=== PATIENT | male | born 1930 | race Caucasian/White ===

== ENCOUNTER → 2016-05-20 | Outpatient (CLI) | payer OTHER | LOC: FIMAGING 10:19 | PROVIDERS: ATTEND Internal Medicine Cardiovascular Disease | DX: I48.91 Unspecified atrial fibrillation (principal); J44.9 Chronic obstructive pulmonary disease, unspecified; J98.11 Atelectasis; T82.120A Displacement of cardiac electrode, initial encounter ==

== ENCOUNTER 2016-07-22 10:20 | Emergency (ER) | payer OTHER ==
--- NOTE | 2016-07-22 10:58 | EDPHY ---
H & P Stated Complaint: copd exacerbation 2 rounds zmax. travel to [facility] [place] Time Seen by Provider: 07/22/16 10:39 HPI/ROS: Chief Complaint: Shortness of breath, cough HPI: 86-year-old male with a history of COPD presenting with 7 days of nonproductive cough and shortness of breath. Patient travel to [facility] and return to [place] a days ago. The following day he started having worsening symptoms consistent with COPD exacerbation. He states that he was traveling with people who were having upper respiratory type symptoms. He did have 2 courses of azithromycin and a prednisone taper which she took but has not had significant improvement. He called his top installer this morning was suggested to come here for chest x-ray and further evaluation. Patient states the cough is dry nonproductive. No subjective fevers or chills. No nausea or vomiting. No chest pain. Does have some shortness of breath associated with his coughing. ROS: 10 point Review of Systems is negative except as noted in the HPI. PMH: COPD Social History: No smoking, no alcohol, no recreational drug use Family History: non-contributory Physical Exam: Gen: Awake, Alert, No Distress HEENT: Nose: no rhinorrhea Eyes: PERRLA, EOMI Mouth: Moist mucosa Neck: Supple, no JVD Chest: nontender, diffuse expiratory wheezing with no focal rales or rhonchi. Heart: S1, S2 normal, no murmur Abd: Soft, non-tender, no guarding Back: no CVA tenderness, no midline tenderness Ext: no edema, non-tender Skin: no rash Neuro: CN II-XII intact, Sensation grossly intact, Strength 5/5 in bilateral upper and lower extremities - Medical/Surgical History Other PMH: COPD. abd chest surg r/t trauma. pacer afib Constitutional: Initial Vital Signs Temperature (C) 36.4 C 07/22/16 10:37 Heart Rate 78 07/22/16 10:37 Respiratory Rate 20 07/22/16 10:37 Blood Pressure 118/71 07/22/16 10:37 O2 Sat (%) 96 07/22/16 10:37 O2 Delivery Mode Room Air Allergies/Adverse Reactions: No Known Allergies Allergy (Unverified 07/22/16 10:42) Home Medications: Medication Instructions Recorded Coreg 07/22/16 Doxycycline Hyclate 100 mg PO BID #20 tablet 07/22/16 Lasix 07/22/16 MONOPRIL 07/22/16 Pradaxa 07/22/16 Spiriva Inhaler (RX) 07/22/16 Zocor 07/22/16 predniSONE 60 mg PO DAILY #9 tab 07/22/16 Medical Decision Making - Diagnostics Imaging Results: Unchanged from prior. No large focal infiltrate per my interpretation. Imaging: I viewed and interpreted images myself ED Course/Re-evaluation: 86-year-old male with a COPD exacerbation. He is not febrile. He is not hypoxic on room air. Vital signs are normal. His diffuse expiratory wheezing and but no focal crackles on examination. Will obtain chest x-ray given DuoNeb and reassess. Patient does not have a large infiltrate on his chest x-ray is largely unchanged from prior. However given his COPD and his lack of improvement will start him on doxycycline. Will continue with steroids 60 mg of prednisone daily for the next 3 days. He should follow up with his top installer on Monday , or return emergency depart for any concerns. Patient is not hypoxemic. He is not tachypneic. Vital signs are otherwise normal. He is afebrile. I think he is appropriate to go home at this time and is asking to do so. - Data Points Medications Given: Discontinued Medications Albuterol/Ipratropium (Duoneb) 3 ml IH EDNOW ONE Stop: 07/22/16 11:19 Last Admin: 07/22/16 11:23 Dose: 3 ml Departure - Departure Disposition: Home, Routine, Self-Care Clinical Impression: Chronic obstructive pulmonary disease with acute exacerbation Condition: Good Instructions: COPD (Chronic Obstructive Pulmonary Disease) (ED) Additional Instructions: Return to the emergency department for increasing shortness of breath, cough, fevers, chills, wheezing, or any other concerns. Take her full course of both antibiotics and prednisone. Follow up with primary care physician or top installer on Monday. Referrals: Aidan Siddiqui MD [Primary Care Provider] - As per Instructions Prescriptions: Doxycycline Hyclate 100 mg PO BID #20 tablet predniSONE 60 mg PO DAILY #9 tab
[2016-07-22] MEDS ORDERED: IPRATROPIUM/ALBUTEROL 3 ML DEYVIAL IH ONE (11:18)
[2016-07-22 12:34] VITALS: BP 122/67; PULSE 82; RESP 18; TEMP 98.2; O2SAT 95
== END 2016-07-22 12:21 | disposition home or self-care (01) ==
LOC: CED 10:20
DX: J44.1 Chronic obstructive pulmonary disease with (acute) exacerbation (principal)
CPT/HCPCS: 71020-PO

== ENCOUNTER → 2016-08-10 | Outpatient (CLI) | payer OTHER | LOC: BMCIMAGING 13:56 | PROVIDERS: ATTEND Internal Medicine | DX: J44.9 Chronic obstructive pulmonary disease, unspecified (principal); R05 Cough; R06.02 Shortness of breath; I48.91 Unspecified atrial fibrillation ==

== ENCOUNTER 2016-08-12 14:29 | Emergency (ER) | payer OTHER ==
[2016-08-12 14:42] VITALS: TEMP 97.5
--- NOTE | 2016-08-12 14:47 | CPEKG ---
Heart Rate: 71 RR Interval: 845 QRSD Interval: 140 QT Interval: 436 QTC Interval: 474 QRS [place]: -65 T Wave [place]: 89 EKG Severity - ABNORMAL ECG - EKG Impression: AFIB/FLUTTER AND VENTRICULAR-PACED RHYTHM Electronically Signed By: Ac Aiken 12-Aug-2016 16:34:10
--- NOTE | 2016-08-12 14:50 | EDPHY ---
H & P Stated Complaint: Problem with cognitive functions over the past 7-8 days Source: Patient Exam Limitations: Clinical condition, Other (Forgetful.) - Personal History Current Tetanus/Diphtheria Vaccine: Unsure Current Tetanus Diphtheria and Acellular Pertussis (TDAP): Unsure - Medical/Surgical History Other PMH: COPD. abd chest surg r/t trauma. pacer afib = Pradaxa therapy. - Social History Smoking Status: Former smoker Alcohol Use: Other (Recovery for 47 years.) Drug Use: None Time Seen by Provider: 08/12/16 14:36 HPI/ROS: CHIEF COMPLAINT: Confusion and cognitive decline Source of information: Pt and to a greater extent, spouse. HISTORY OF PRESENT ILLNESS: Pt sent in by PC for confusion. Concern for suacute cognitive decline in the past 8 days, worse in the past 3 days since placed on Cough medicine with Codeine. Repiratory sx persist. Pt with chronic Afib on Pradaxa, as well as COPD presented to the ER on 07/22 with COPD exacerbation of 7-10 days duration. Sx began when in [facility] on [employer] tour, others then ill in the [place]. Responded well in ER tro Matthew and sent home on Doxy and Prednisone - both of whcih he finished, though sx still linger, bertter, but not gettiong worse. About 7-8 days ago spouse noted periods of confusion as well as overall fatigue , punctuated be a new imbalance problem. Whil the balance problem was persistent in the past 8 days spouse recalls near collapse while in [place] and intermittently since, as well as last night when he got up out of chair after watching TV. On these occaisions, he looses his color though there is no diaphoresis and no actual falls. SOB and cough is poor, though stable without fever or pleuritic chest pain, nor leg edema. Seen by PCP for the cnfusion 2 days ago. repeat CXR showed no interval change with chronic though stable interstitial changes, report reviewed by me. Evidently thought focused on COPD exacerbation and relative exhaustion with poor sleep due to the incessant coughing, so placed on Codeine COugh Elixir. Spouse sepcutlate that 1/2 of the 10 oz bottle is goine in the past 72 hours amounting to 5, 10 cc doses a day. REVIEW OF SYSTEMS: Constitutional: No fever, no chills. Eyes: No blurred vision. ENT: No sore throat. Cardiovascular: No chest pain, no palpitations. Respiratory: See above. Gastrointestinal: No nausea vomiting or diarrhea. No abdominal pain. Genitourinary: No hematuria or frequency. Musculoskeletal: No back pain. Skin: No rashes. Neurological: No headache. 10 point ROS otherwise negative (Ac Aiken) - Physical Exam Exam: Exam: General Appearance: Alert, good color, no diaphoresis, nontoxic. Normal phonation. No respiratory distress, speaks in full sentences. Oriented x3. Eyes: Pupils equal and round no pallor or injection. No icterus ENT, Mouth: Mucous membranes moist. Pharynx without erythema or exudate. Tm blocked by hearing aids. Neck: No adenopathy. Supple. No JVD at 45 degrees. Respiratory: There are no retractions, lungs are without dullness, mild wheeze. No chest wall tenderness. Cardiovascular: Regular rate and rhythm, Gr 3/6 blowing systolic M heard best at the [place]. Abdomen: Soft and nontender, no masses, bowel sounds normal. Femoral pulses equal. Neurological: Ox3. No motor weakness. Sensation intact. Gait nl for age with a hunched over appearance. Skin: Warm and dry, no rashes. Musculoskeletal: No joint swelling. Extremities: No edema. Homans sign negative. No cords. Chronic venous insufficiency changes. Psychiatric: Patient is oriented X 3, there is no agitation. Polite, cooperative.. (Ac Aiken) Constitutional: Initial Vital Signs Temperature (C) 36.4 C 08/12/16 14:37 Heart Rate 74 08/12/16 14:37 Respiratory Rate 20 08/12/16 14:37 Blood Pressure 138/83 H 08/12/16 14:37 O2 Sat (%) 98 08/12/16 14:37 O2 Delivery Mode Room Air Allergies/Adverse Reactions: No Known Allergies Allergy (Unverified 07/22/16 10:42) Home Medications: Medication Instructions Recorded Coreg 07/22/16 Lasix 07/22/16 Pradaxa 07/22/16 Spiriva Inhaler (RX) 07/22/16 Zocor 07/22/16 AZITHROMYCIN 08/12/16 Colace 08/12/16 GLYCERIN LAXATIVE 08/12/16 Senna-S Tablet 08/12/16 Vertussin Ac 08/12/16 Medical Decision Making - Diagnostics EKG Interpretation: EKG interpreted by me: Paced, LBBB pattern with underlying A flutter. See interpretation in Trace Master by me. (Ac Aiken) Imaging Results: Imaging Impressions Head CT 08/12/16 14:46 Impression: 1. No acute intracranial findings. 2. 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 3. Additional findings as above. Findings discussed with Ac Aiken MD on 08/12/[address] reveiwed on PACS and d/w radiologist. (Ac Aiken) ED Course/Re-evaluation: Pt sent off to CT once it became evident that presntation was for mental decline. Case d/w on coming EDP wrt above history, exam, as well as CT findings. After I d/w radiologist the CT findings, I shared them with the EDP taking over renee case as well as the pt. His exam remained unchanged. Disposition pending as no labs back and plan for observation vs going home d/w pt. and spouse. ( Ac Aiken) I assumed care from Dr. Aiken agree pending results of troponin. First troponin was slightly elevated at 0.039. I re-evaluated the patient and he is not currently having any chest pain or difficulty breathing. His primary complaint is cough and his 's primary concern is that he seemed sleepy and confused the past few days since he began taking codeine for his cough. Cough has now been ongoing for over 3 weeks and is not respond to 4 different courses of antibiotics or his inhalers. He says it feels better at night when he uses his CPAP. The patient is oriented x3 and discuss his medications in detail does not seem confused currently. He does admit to having 3 episodes of what he describes as pressure-like chest pain lasting less than a minute but that occurred related to exertion 7-10 days ago. They were not associated with any trouble breathing diaphoresis or nausea or vomiting. Patient has never had a stress test or angiogram that he can recall. A BNP was added on to his labs which was elevated at 3000 this is up from 1100 in May of this year. A repeat troponin was slightly lower at 0.035 but still just above the upper limit of normal. He has a interlocking pavement installer, Dr. Carcamo, who has ordered a work-up coming up in August. Initially I wanted to admit the patient for observation because of his elevated troponin although his symptoms today seem more likely related to his codeine use. I discussed the case with Dr. Lang cold reduction roller for Cardiology who agreed that this would be the prudent course of action given the and the weekend and he will be able to see his usual interlocking pavement installer until Monday next week. However the patient does have home health care and his would prefer to take him home. During his extended emergency department stay he began feeling better and more alert and his thought he seemed more like his usual self. They attributed this to the codeine wearing off. Patient has not had any current chest pain and the episode 1 week ago was certainly atypical. It appears the patient does have some underlying congestive heart failure and this may be the cause of his cough rather than pulmonary disease which has not responded to 4 courses of antibiotics. There is no evidence of right-sided congestive heart failure today. I think the patient's cardiac problems are ongoing and subacute and although it might be reasonable to admit, he and his would prefer to go home. We discussed the risks including worsening of his condition, a with me as and and they understand and are willing to accept this. We also discussed immediate return precautions including difficulty breathing, chest pain, orthopnea, leg swelling or other new problems. Given that they understand the risks and that this appears to be more of a subacute problem patient be discharged home to follow up as soon as possible with his interlocking pavement installer and return to the ER immediately for new symptoms. (Anel Olsen) Differential Diagnosis: My DDX AMS Differential Includes but is not limited to: Meningitis, new onset seizure disorder, encephalitis, intracranial hemorrhage, drug intoxication, drug mishap, vasculitis. (Ac Aiken) - Data Points Laboratory Results: Laboratory Results 08/12/16 14:45 08/12/16 14:45 08/12/16 08/12/16 08/12/16 17:55 14:45 14:45 WBC RBC Hgb Hct MCV MCH MCHC RDW Plt Count MPV Neut % (Auto) Lymph % (Auto) [place] % (Auto) Eos % (Auto) Baso % (Auto) Nucleat RBC Rel Count Absolute Neuts (auto) Absolute Lymphs (auto) Absolute Monos (auto) Absolute Eos (auto) Absolute Basos (auto) Absolute Nucleated RBC Immature Gran % Immature Gran # Sodium 138 mEq/L mEq/L (134-144) Potassium 4.3 mEq/L mEq/L (3.5-5.2) Chloride 100 mEq/L mEq/L (97-110) Carbon Dioxide 26 mEq/l mEq/l (22-31) Anion Gap 12 mEq/L mEq/L (8-16) BUN 25 mg/dL H mg/dL (7-23) Creatinine 1.2 mg/dL mg/dL (0.7-1.3) Estimated GFR 57 Glucose 116 mg/dL H mg/dL (70-100) Calcium 8.6 mg/dL mg/dL (8.5-10.4) Magnesium 2.2 mg/dL mg/dL (1.6-2.3) Troponin I 0.035 ng/mL H ng/mL 0.039 ng/mL H ng/mL (0-0.034) (0-0.034) NT-Pro-B Natriuret Pep 3070 pg/mL H pg/mL (0-450) 08/12/16 14:45 WBC 7.50 10^3/uL 10^3/uL (3.80-9.50) RBC 4.84 10^6/uL 10^6/uL (4.40-6.38) Hgb 15.7 g/dL g/dL (13.7-17.5) Hct 44.8 % % (40.0-51.0) MCV 92.6 fL fL (81.5-99.8) MCH 32.4 pg pg (27.9-34.1) MCHC 35.0 g/dL g/dL (32.4-36.7) RDW 12.7 % % (11.5-15.2) Plt Count 77 10^3/uL L 10^3/uL (150-400) MPV 10.0 fL fL (8.7-11.7) Neut % (Auto) 64.4 % % (39.3-74.2) Lymph % (Auto) 18.0 % % (15.0-45.0) [place] % (Auto) 13.6 % H % (4.5-13.0) Eos % (Auto) 3.2 % % (0.6-7.6) Baso % (Auto) 0.4 % % (0.3-1.7) Nucleat RBC Rel Count 0.0 % % (0.0-0.2) Absolute Neuts (auto) 4.83 10^3/uL 10^3/uL (1.70-6.50) Absolute Lymphs (auto) 1.35 10^3/uL 10^3/uL (1.00-3.00) Absolute Monos (auto) 1.02 10^3/uL H 10^3/uL (0.30-0.80) Absolute Eos (auto) 0.24 10^3/uL 10^3/uL (0.03-0.40) Absolute Basos (auto) 0.03 10^3/uL 10^3/uL (0.02-0.10) Absolute Nucleated RBC 0.00 10^3/uL 10^3/uL (0-0.01) Immature Gran % 0.4 % % (0.0-1.1) Immature Gran # 0.03 10^3/uL 10^3/uL (0.00-0.10) Sodium Potassium Chloride Carbon Dioxide Anion Gap BUN Creatinine Estimated GFR Glucose Calcium Magnesium Troponin I NT-Pro-B Natriuret Pep Departure - Departure Disposition: Home, Routine, Self-Care Clinical Impression: Codeine adverse reaction, Elevated brain natriuretic peptide (BNP) level, Elevated troponin Condition: Fair Additional Instructions: You were seen by Dr. Anel Olsen today. I suspect her symptoms over the past 24-48 hours were related to too much codeine. Please stop taking any codeine. You had an elevated beta natriuretic peptide level which suggest underlying heart failure. This level has increased from May of last year. You also had a borderline elevated troponin, a test which can measure damage to the heart muscle. This needs close follow-up with your interlocking pavement installer. Please try to be seen 1st thing next week. In addition, if you develop any chest pain, difficulty breathing or other new symptoms or worsening you must return immediately to the emergency department. Return for any other worsening or new concerns. Referrals: Mitch Stevens MD [Medical Doctor] - As per Instructions Adama Crain MD [Primary Care Provider] - As per Instructions
[2016-08-12 14:58] LABS: % IMMATURE GRANULYOCYTES 0.4 % (0.0-1.1); ABSOLUTE IMMATURE GRANULOCYTES 0.03 10^3/uL (0.00-0.10); ADD DIFF? NO; ADD MORPH? NO; ADD SCAN? NO; ATYPICAL LYMPHOCYTE FLAG 30 (0-99); FRAGMENT RBC FLAG 0 (0-99); HEMATOCRIT 44.8 % (40.0-51.0); HEMOGLOBIN 15.7 g/dL (13.7-17.5); LEFT SHIFT FLG 0 (0-99); LIPEMIA HEMOLYSIS FLAG 90 (0-99); MEAN CELL HEMOGLOBIN 32.4 pg (27.9-34.1); MEAN CELL VOLUME 92.6 fL (81.5-99.8); PLATELET CLUMPS FLAG 10 (0-99); PLATELET COUNT 77 10^3/uL (150-400); RED BLOOD CELL COUNT 4.84 10^6/uL (4.40-6.38); RED CELL DISTRIBUTION WIDTH 12.7 % (11.5-15.2)
[2016-08-12 15:15] LABS: ANION GAP 12 mEq/L (8-16); CALCIUM 8.6 mg/dL (8.5-10.4); CARBON DIOXIDE 26 mEq/l (22-31); CHLORIDE 100 mEq/L (97-110); CREATININE 1.2 mg/dL (0.7-1.3); GLOMERULAR FILTRATION RATE 57; GLUCOSE 116 mg/dL (70-100); MAGNESIUM 2.2 mg/dL (1.6-2.3); POTASSIUM 4.3 mEq/L (3.5-5.2); SODIUM 138 mEq/L (134-144)
[2016-08-12 15:30] LABS: TROPONIN I 0.039 ng/mL (0-0.034)
[2016-08-12 18:21] VITALS: RESP 16; O2SAT 95
[2016-08-12 19:04] VITALS: BP 133/76; PULSE 77
== END 2016-08-12 19:16 | disposition home or self-care (01) ==
LOC: CED 14:29
DX: R79.89 Other specified abnormal findings of blood chemistry (principal); T40.2X5A Adverse effect of other opioids, initial encounter; J44.9 Chronic obstructive pulmonary disease, unspecified; Z87.891 Personal history of nicotine dependence
CPT/HCPCS: 70450-PO; 80048-PO; 83735-PO; 83880-PO; 84484-PO; 85025-PO

== ENCOUNTER → 2016-08-24 | Outpatient (CLI) | payer OTHER | LOC: BHFA 08:30 | PROVIDERS: ATTEND Internal Medicine Interventional Cardiology | DX: R06.02 Shortness of breath (principal) | CPT/HCPCS: 78452; 93017; A9500; J2785 ==

== ENCOUNTER → 2016-08-25 | Outpatient (CLI) | payer OTHER | LOC: BHFA 10:45 | PROVIDERS: ATTEND Internal Medicine Cardiovascular Disease | DX: I48.91 Unspecified atrial fibrillation (principal); R06.00 Dyspnea, unspecified ==

== ENCOUNTER → 2017-03-29 | Outpatient (CLI) | payer OTHER | LOC: CIMAGING 08:19 | PROVIDERS: ATTEND Psychiatry & Neurology Neurology | DX: G20 Parkinson's disease (principal); G93.89 Other specified disorders of brain | CPT/HCPCS: 70450-PO ==

== ENCOUNTER 2017-05-03 11:00 | Emergency (ER) | payer OTHER ==
[2017-05-03 11:09] VITALS: RESP 16; O2SAT 95
[2017-05-03] MEDS ORDERED: ACETAMINOPHEN 500 MG TAB PO ONE (11:48)
--- NOTE | 2017-05-03 11:53 | EDPHY ---
H & P Stated Complaint: fell yesterday, right shoulder, right chest, right forearm pain Time Seen by Provider: 05/03/17 11:07 HPI/ROS: Chief Complaint: Fall, arm laceration, chest wall pain HPI: 86-year-old male had a mechanical fall when he missed a step yesterday afternoon. He fell onto his right hand side. He sustained a skin tear to his right forearm. He has also been complaining of pain in his anterior right mid chest. It hurts to take a deep breath. No cough. No fevers or chills. No abdominal pain. He did not hit his head. No loss of consciousness. He is not on blood thinning medications. Fall occurred nearly 24 hr ago. He has not been having any lightheadedness or syncope. Some very mild shortness of breath. Does have a history of COPD is been taking his medications as prescribed. No recent illness. He has been taking some Tylenol with some relief. ROS: 10 point Review of Systems is negative except as noted in the HPI. PMH: COPD Social History: No smoking, no alcohol, no recreational drug use Family History: non-contributory Physical Exam: Gen: Awake, Alert, Airway Intact HEENT: Head: Atraumatic Eyes: PERRLA, EOMI Nose: No epistaxis Mouth: Normal dentition, Airway patent Face: No deformity Neck: non-tender, no stepoff, Full ROM without pain Chest: He has tenderness in the mid axillary and anterior axillary line in the area of the 4th rib on his right chest wall. There is no contusions, no step- offs, no flail segments, lungs CTA Heart: normal heart tones Abd: soft, non-tender, atraumatic Pelvis: non-tender, stable to AP and Lateral compression Back: atraumatic, no midline tenderness Ext: He has a 5 cm skin tear on his right forearm which is not go through the dermis. No erythema. No active bleeding., no bony tenderness., full ROM Skin: no rash Neuro: CN II-XII intact, Strength 5/5 in all extremities, sensation intact in all extremities - Personal History Current Tetanus Diphtheria and Acellular Pertussis (TDAP): Yes - Medical/Surgical History Hx Asthma: No Hx Chronic Respiratory Disease: Yes Hx Diabetes: No Hx Cardiac Disease: Yes Hx Renal Disease: No Hx Cirrhosis: No Hx Alcoholism: Yes Hx HIV/AIDS: No Hx Splenectomy or Spleen Trauma: No Other PMH: COPD. abd chest surg r/t trauma. pacer afib, - Social History Smoking Status: Former smoker Constitutional: Initial Vital Signs Heart Rate 84 05/03/17 11:03 Respiratory Rate 16 05/03/17 11:03 Blood Pressure 107/59 L 05/03/17 11:03 O2 Sat (%) 95 05/03/17 11:03 O2 Delivery Mode Room Air Allergies/Adverse Reactions: codeine Allergy (Verified 05/03/17 11:09) Home Medications: Medication Instructions Recorded Coreg 07/22/16 Spiriva Inhaler (RX) 07/22/16 Zocor 07/22/16 AZITHROMYCIN 08/12/16 Colace 08/12/16 GLYCERIN LAXATIVE 08/12/16 Senna-S Tablet 08/12/16 Albuterol 05/03/17 Priyanka Allergy 05/03/17 Apixaban 05/03/17 Diuretic And Potassium 05/03/17 Guaifenesin 05/03/17 Sinemet 10/100 MG (*) 05/03/17 Symbicort 160-4.5 Mcg Inh (*) 05/03/17 Torsemide 05/03/17 Zoloft 100mg (*) 05/03/17 Medical Decision Making - Diagnostics Imaging Results: Imaging Impressions Chest X-Ray 05/03/17 11:28 Impression: Radiographically similar to 08/10/2016. ED Course/Re-evaluation: Chest x-ray is negative. Wrist has been dressed with Coban. He will be sent home with an incentive spirometer and analgesia, follow up with his primary care physician in 4-5 days for recheck. - Data Points Medications Given: Discontinued Medications Acetaminophen (Tylenol) 1,000 mg PO EDNOW ONE Stop: 05/03/17 11:49 Last Admin: 05/03/17 11:52 Dose: 1,000 mg Departure - Departure Disposition: Home, Routine, Self-Care Clinical Impression: Chest wall contusion, Skin tear of forearm without complication Condition: Good Instructions: Skin Tear (ED), Chest Wall Pain (ED), How to Use an Incentive Spirometer (ED) Additional Instructions: Use the breathing device every 15 min while awake. You may take ibuprofen alternating with acetaminophen every 4 hr for pain. Follow up with your primary care physician in 3-4 days for recheck. Return to the emergency department for increasing chest pain, shortness of breath, worsening cough, fever, arm redness, or any other concerns. Referrals: Adama Crain MD [Primary Care Provider] - As per Instructions
[2017-05-03 12:36] VITALS: BP 110/60; PULSE 85; TEMP 98.2
== END 2017-05-03 12:34 | disposition home or self-care (01) ==
LOC: CED 11:00
DX: S20.211A Contusion of right front wall of thorax, initial encounter (principal); S51.811A Laceration without foreign body of right forearm, initial encounter; J44.9 Chronic obstructive pulmonary disease, unspecified; Z87.891 Personal history of nicotine dependence; W10.9XXA Fall (on) (from) unspecified stairs and steps, initial encounter
CPT/HCPCS: 71046-PO

== ENCOUNTER → 2018-05-17 | Outpatient (CLI) | payer OTHER | LOC: BHLMT 10:00 | PROVIDERS: ATTEND Internal Medicine Cardiovascular Disease | DX: I48.91 Unspecified atrial fibrillation (principal); I50.32 Chronic diastolic (congestive) heart failure; J44.9 Chronic obstructive pulmonary disease, unspecified | CPT/HCPCS: 93306-PO ==

== ENCOUNTER 2018-06-23 14:39 | Emergency (ER) | payer OTHER ==
--- NOTE | 2018-06-23 15:29 | EDPHY ---
H & P Stated Complaint: rt. 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 He reports that he has had long-term right lower abdominal/hip area pain however this is low different see below. Further she is concerned as he has had a cognitive decline in the last week. Evidently yesterday they were playing some form of game and he could not think of a particular word that he needed, something that he would ordinarily have come up with right away. As to the right hip: He states has been bothering him often on sporadically over the last 2 years at least. Most recently it has been particularly problematic in the last 2 weeks. He denies any falls although there was 1 occasion when he was tripping over, as he has Parkinson's disease, and his neighbor caught him before he went to ground. This was then the last 2-3 weeks. So this areas of bothered him for at least 2 weeks and not getting better. Yesterday, they went out for a walk as something he would usually or nearly be able to do but at 2 blocks from home he had to sit down and was unable to go any will further cause the hip was bother him so much and sent the back to the house to get the car to come pick him up. He has not noted any shortening to this hip. He has never had hip replacement is not known to have arthritis per se. He points to the very lower right abdomen just above the inguinal ligament. However he also notes that the bowels and bladder are functioning at normal levels and his appetite was normal today. Further, he does not feel distended. He reported pain in the right lower abdomen extreme lower abdomen when I palpated and reported this to be in the buttock area overlying the iliac crest. The pain itself is localized to the same areas bend but it does feel different than what he has had off and on for last 2 years that he describes as his "sciatic pain". It does not radiate. It is been steady and unrelenting but only mild to moderate in nature. It does not radiate down the leg. He is not taking any medications tried improved. He does not notice any shortening of the leg or difficulty with internal external rotation. Evidently no history of compression fractures As to the cognitive decline the has noted this slowly over the last year or 2. He had a recent consultation with a neurologist to confirm this. There is some testing involved but I do not know exactly what kind. I would expect his be more ball than the mini-mental status exam. However she noted that at this point in time he at performed poorly and a game last night when he should of noted a particular word as would be as usual custom. REVIEW OF SYSTEMS: Constitutional: No fever, no chills. Eyes: No discharge No diplopia ENT: No sore throat. Cardiovascular: No chest pain, no palpitations. Respiratory: No cough, shortness of breath, or wheezing. Gastrointestinal: No Nausea, vomiting, abdominal pain or diarrhea Genitourinary: No hematuria or frequency. Musculoskeletal: No back pain. Skin: No rashes. Neurological: No headache. See above A 10 system review of systems was performed and is negative except for the noted findings in the HPI. Source: Patient, Family Exam Limitations: No limitations - Personal History Current Tetanus Diphtheria and Acellular Pertussis (TDAP): Unsure - Medical/Surgical History Hx Asthma: No Hx Chronic Respiratory Disease: Yes Hx Diabetes: No Hx Cardiac Disease: Yes Hx Renal Disease: No Hx Cirrhosis: No Hx Alcoholism: Yes Hx HIV/AIDS: No Hx Splenectomy or Spleen Trauma: No Other PMH: COPD,Pulmonary HTN. parkinson's, s/p appendectomy. hernia-rt inguinal and ventral, both reducible. abd chest surg r/t trauma. pacer, afib = Apixaban. Dementia - recently seen by a neurologist - Family History Significant Family History: No pertinent family hx - Social History Smoking Status: Former smoker (Retired surgeon.) Alcohol Use: None Drug Use: None - Physical Exam Exam: General Appearance: Alert, no distress. Appears younger than stated age. Is nontoxic. Speech is fluent and complex. Afebrile. Normal phonation. No respiratory distress. No signs of cranial abrasions or cephalhematoma Eyes: Pupils equal and round no pallor or injection. No icterus. Interestingly, his right iris is a little bit lower than the left which appears more the green side ENT, Mouth: Mucous membranes moist Pharynx without erythema or exudate. TM Clear. Neck: No adenopathy. Supple. No JVD. Trachea in midline. Respiratory: There are no retractions, lungs are clear to auscultation. Though he typically has exacerbations of his COPD in June and December, he states this past week has been doing well and is breath sounds are symmetrical, equal and heard well without any dullness Cardiovascular: Regular rate and rhythm. He is a grade 2/6 murmur heard best at the lower left sternal border which is systolic in time and is pansystolic. He believes he has a mitral murmur.. Abdomen: Soft, no masses, bowel sounds normal. There is a ventral hernia in the site of his prior incision which is flat and not protuberant at this time. There is a large right inguinal hernia which is easily reducible. He states that he has had General surgery evaluate and they do not plan to intervene as it is unlikely to incarcerate. Femoral pulses equal. There is tenderness however in the right lower quadrant this without any rebound or guarding. Neurological: Ox3. No motor weakness. Sensation intact. Gait nl. Skin: Warm and dry, no rashes. Musculoskeletal: No joint swelling. Extremities: No edema. Homans sign negative. No cords. There is no shortening. There is no pain or limitation with internal external rotation however, with passive flexion he complains of reproducible pain in the right groin. Further, as a palpate in the right in inguinal region as noted above in the abdominal exam he complains of pain going to the back over the iliac crest. When I approach the pelvic bone from posteriorly over the iliac crest he complains of sensitivity and [id number] discomfort. Psychiatric: Normal affect. Patient is oriented X 3. There is no agitation Neurological: He is grossly intact with cranial nerves 2-12. However, he could not name the president as he seems stuck on that. Furthermore he cannot get the sequence of presidents down whereas he came up with doherty-doherty and then Delgado. The correct answer was Dinorah Olivas then Doherty. He was however able to spell the word 'world' backwards. With respect to orientation he could tell me was the 1st week of June and that is season was spring and the next holiday was going to be Easter, however he cannot tell me the actual year per se. Constitutional: Initial Vital Signs Temperature (C) 36.3 C 06/23/18 15:01 Heart Rate 73 06/23/18 15:01 Respiratory Rate 18 06/23/18 15:01 Blood Pressure 113/52 L 06/23/18 15:01 O2 Sat (%) 95 06/23/18 15:01 O2 Delivery Mode Room Air Allergies/Adverse Reactions: codeine Allergy (Verified 06/23/18 14:55) Home Medications: Medication Instructions Recorded Coreg 07/22/16 Spiriva Inhaler (RX) 07/22/16 Zocor 07/22/16 Colace 08/12/16 GLYCERIN LAXATIVE 08/12/16 Senna-S Tablet 08/12/16 Albuterol 05/03/17 Priyanka Allergy 05/03/17 Apixaban 05/03/17 Guaifenesin 05/03/17 Sinemet 10/100 MG (*) 05/03/17 Symbicort 160-4.5 Mcg Inh (*) 05/03/17 Torsemide 05/03/17 Zoloft 100mg (*) 05/03/17 Medical Decision Making - Diagnostics Imaging Results: Imaging Impressions Hip X-Ray 06/23/18 15:26 Impression: There are some degenerative features of the right hip and lower lumbar spine, with no acute osseous abnormality identified. Should there be progression of the patient's symptoms, CT imaging could be considered (the patient has a pacemaker) Head CT 06/23/18 16:08 Impression: Chronic senescent features as above-detailed, with no acute intracranial abnormality identified on this unenhanced CT evaluation. If there is further clinical concern regarding the patient's symptoms, MR imaging is suggested, if not otherwise contraindicated. Findings were discussed with Ac Aiken MD at 16:51, on 06/23/2018. Pelvis CT 06/23/18 16:09 Impression: 1. Advanced degenerative changes of the visualized lower lumbar spine, as- detailed. 2. Moderately advanced degenerative change of the right hip joint, with no acute right hip fracture. 3. Herniation of omental fat and a knuckle of bowel into the right inguinal canal, with minimal herniation of omental fat into the upper left inguinal region. Findings were discussed with Ac Aiken MD at 17:00, on 06/23/2018. Imaging: Discussed imaging studies w/ economic specialist Radiologist ED Course/Re-evaluation: Patient vital signs are stable. Orthostatic blood pressures performed by nursing staff and reviewed by me and her appropriate for a man of his age. Consult declined was noted on the neurologic exam as seen above. A pelvis film was included with the right hip and shows degenerative changes without any acute fracture. Laboratory evaluation included a slightly elevated sodium 147 with potassium 4.2. Renal function is a little bit worse than it was this past December whereas it is now a creatinine 1.5 at that point in time it had a creatinine of 1.2. Further his BUN to creatinine ratio is quite close to 221 reflecting dehydration as seen back in December as well. His platelet count is only 114 however he has tended to run a low platelet when looking at other laboratories tests in the past. Evidently as his serum sodium 147 there is no sign of electrolyte imbalance to explain for his cognitive decline. Within normal electrolytes in mind CT scans were performed of head and pelvis as follows: CT of the head: Stable. No interval change. Old evidence of frontal encephalomalacia compatible with prior stroke. Interpreted by radiologist CT of the pelvis. No signs of hip fracture. No pelvic fracture. Interpreted by radiologist Unfortunately the man is suffering from a recent step morrow decreasing mental capacity in the setting of alzheimers. He is to follow up with his neurologist as he has had 1 in the past. I do not find a convincing reason for his right hip pain. It is not impressively arthritic. Certainly no fracture. Likewise the hernia is reducible and not a role. The abdomen was benign. Differential Diagnosis: The differential diagnosis includes but is not limited to: Fracture, Sprain, Strain, Dislocation, Nerve injury, Contusion, Gastroenteritis , dehydration, diverticulitis, hepatitis, pancreatitis, renal colic, kidney stones, ureterolithiasis, mesenteric adenitis. - Data Points Laboratory Results: 06/23/18 15:43 POC Sodium 147 mEq/L H mEq/L (135-145) POC Potassium 4.2 mEq/L mEq/L (3.3-5.0) POC Chloride 102.0 mEq/L mEq/L (97-110) POC Total CO2 30 mEq/L mEq/L (22-31) POC BUN 28 mg/dL H mg/dL (7-23) POC Creatinine 1.5 mg/dL H mg/dL (0.7-1.3) POC Glucose 105 mg/dL H mg/dL (70-100) POC Calcium 9.2 mg/dL mg/dL (8.5-10.4) POC Total Bilirubin 1.4 mg/dL mg/dL (0.1-1.4) POC AST 27 IU/L IU/L (17-59) POC ALT 12 IU/L L IU/L (21-72) POC Alk Phosphatase 113 IU/L IU/L (38-126) POC Total Protein 6.3 g/dL g/dL (6.3-8.2) POC Albumin 3.6 g/dL g/dL (3.5-5.0) Point of Care Test Results: CBC CBC Collection Date 06/23/18 CBC Collection Time 15:30 WBC 5.28 RBC 4.33 HGB 13.9 HCT 40.3 PLT 114 Neut # 3.06 Neut 57.9 LYMPH # 1.46 LYMPH 27.7 MCV 93.1 Chemistry 06/23/18 15:43 POC Sodium 147 mEq/L H mEq/L (135-145) POC Potassium 4.2 mEq/L mEq/L (3.3-5.0) POC Chloride 102.0 mEq/L mEq/L (97-110) POC Total CO2 30 mEq/L mEq/L (22-31) POC BUN 28 mg/dL H mg/dL (7-23) POC Creatinine 1.5 mg/dL H mg/dL (0.7-1.3) POC Glucose 105 mg/dL H mg/dL (70-100) POC Calcium 9.2 mg/dL mg/dL (8.5-10.4) POC Total Bilirubin 1.4 mg/dL mg/dL (0.1-1.4) POC AST 27 IU/L IU/L (17-59) POC ALT 12 IU/L L IU/L (21-72) POC Alk Phosphatase 113 IU/L IU/L (38-126) POC Total Protein 6.3 g/dL g/dL (6.3-8.2) POC Albumin 3.6 g/dL g/dL (3.5-5.0) Urine Dip Collection Date 06/23/18 Collection Time 14:40 Specific Gully (1.002-1.030) 1.015 PH (5.0-7.5) 5.5 Leukocytes (Negative) Negative Nitrites (Negative) Negative Protein (Negative) Negative Glucose (Negative) Negative Ketones (Negative) Negative Urobilnogen (0.2-1.0 EU) 0.2 Bilirubin (Negative) Negative Blood (Negative) Negative Departure - Departure Disposition: Home, Routine, Self-Care Clinical Impression: Confusion Strain of hip Qualifiers: Encounter type: initial encounter Laterality: right Qualified Code(s): S76.011A - Strain of muscle, fascia and tendon of right hip, initial encounter Condition: Good Instructions: Acute Delirium (ED), Groin Strain (ED) Additional Instructions: Call for follow up with your doctor and Neuologist. Until cleared no driving or operating machinery. Return if nausea or vomiting or loss of appetite. Use the cane for balance at all times. Referrals: NONE *PRIMARY CARE P,. [Primary Care Provider] - As per Instructions
[2018-06-24 01:11] VITALS: BP 118/70
== END 2018-06-23 17:40 | disposition home or self-care (01) ==
LOC: CED 14:39
DX: R41.0 Disorientation, unspecified (principal); S73.191A Other sprain of right hip, initial encounter; J44.9 Chronic obstructive pulmonary disease, unspecified; M16.11 Unilateral primary osteoarthritis, right hip; K46.9 Unspecified abdominal hernia without obstruction or gangrene; M47.816 Spondylosis without myelopathy or radiculopathy, lumbar region; G20 Parkinson's disease; W18.49XA Other slipping, tripping and stumbling without falling, initial encounter; Z95.0 Presence of cardiac pacemaker; Z87.891 Personal history of nicotine dependence
CPT/HCPCS: 70450-PO; 72192-PO; 73502-PO; 80053-ER; 85025-QW-ER; 99285-ER